=== PATIENT | male | born 1980 | race Two or more races ===

== ENCOUNTER 2019-07-11 21:24 | Emergency (ER) | payer SELFPAY ==
[2019-07-11] MEDS ORDERED: KETOROLAC TROMETHAMINE 60 MG/2 ML SDV IM ONE (22:29)
[2019-07-11] MEDS ORDERED: DIPHENHYDRAMINE HCL 25 MG CAPSULE PO ONE (22:29)
[2019-07-11] MEDS ORDERED: METOCLOPRAMIDE HCL 10 MG TABLET PO ONE (22:29)
--- NOTE | 2019-07-11 22:31 | ER Document Report ---
ED Medical Screen (RME) - General Chief Complaint: Headache Stated Complaint: HEADACHE Time Seen by Provider: 07/11/19 22:25 Mode of Arrival: Ambulatory Information source: Patient Notes: This 38-year-old male that speaks primarily Namibian presents emergency department with headache behind his eyes for the past 5 months that comes and goes. Reports he is been taking Aleve [id number] medications migraine medications without relief of symptoms. Reports for the past month its been constant. He has been seen by primary care providers in urgent care. Without relief of symptoms. Reports he is from [place]. Denies past medical history. Denies allergies. Denies trauma fever vomiting diarrhea. I have greeted and performed a rapid initial assessment of this patient. A comprehensive ED assessment and evaluation of the patient, analysis of test results and completion of the medical decision making process will be conducted by additional ED providers. Dictation of this chart was performed using voice recognition software; therefore, there may be some unintended grammatical errors. TRAVEL OUTSIDE OF THE [place] IN LAST 30 DAYS: No - Related Data Allergies/Adverse Reactions: No Known Allergies Allergy (Unverified 07/11/19 22:25) Physical Exam - Vital signs Vitals: Temp Pulse Resp BP Pulse Ox 98.2 F 83 18 142/87 H 98 07/11/19 21:49 07/11/19 21:49 07/11/19 21:49 07/11/19 21:49 07/11/19 21:49 Course - Vital Signs Vital signs: Temp Pulse Resp BP Pulse Ox 98.2 F 83 18 142/87 H 98 07/11/19 21:49 07/11/19 21:49 07/11/19 21:49 07/11/19 21:49 07/11/19 21:49
[2019-07-11] MEDS ORDERED: NORMAL SALINE 1000 ML 1,000 ML IV ONE (23:21)
[2019-07-11] MEDS ORDERED: KETOROLAC TROMETHAMINE INJ/PF 30 MG/1 ML SDV IV ONE (23:21)
[2019-07-11] MEDS ORDERED: METHOCARBAMOL INJ/PF 1000 MG/10 ML SDV IV ONE (23:21)
[2019-07-11] MEDS ORDERED: DIPHENHYDRAMINE HCL 50 MG/ML VIAL IV ONE (23:21)
[2019-07-11] MEDS ORDERED: METOCLOPRAMIDE HCL INJ/PF 10 MG/2 ML SDV IV ONE (23:21)
--- NOTE | 2019-07-11 23:23 | ER Document Report ---
ED Headache - General Chief Complaint: Headache Stated Complaint: HEADACHE Time Seen by Provider: 07/11/19 22:25 Primary Care Provider: JOYCELYN [facility] [Provider Group] - Follow up as needed [facility] [Provider Group] - Follow up as needed Mode of Arrival: Ambulatory Notes: Patient is a 38-year-old male that comes emergency department for chief complaint of a headache. He states he is tight in his right shoulder and neck, and he has a headache that feels like a band that comes around the front of his head and settles behind his eyes. He states that he has been getting these on a regular basis for weeks now. He denies head injury, shoulder or neck injury, focal numbness or weakness, nausea or vomiting, fever or chills. He states he was seen by urgent care without relief, he is taking Tylenol and Aleve without relief. Patient denies alcohol regularly, denies recreational drugs. He speaks primarily Sudanese, a stand up forklift operator system was used to communicate with the patient. He denies any prescribed any medications, denies any surgeries or past medical history. TRAVEL OUTSIDE OF THE [place] IN LAST 30 DAYS: No - Related Data Allergies/Adverse Reactions: No Known Allergies Allergy (Unverified 07/11/19 22:25) Past Medical History - General Information source: Patient - Social History Smoking Status: Never Smoker Frequency of alcohol use: None Drug Abuse: None Lives with: Family Family History: Reviewed & Not Pertinent Patient has suicidal ideation: No Patient has homicidal ideation: No - Medical History Medical History: Negative Surgical Hx: Negative - Immunizations Immunizations up to date: Yes Hx Diphtheria, Pertussis, Tetanus Vaccination: Yes Review of Systems - Review of Systems Constitutional: No symptoms reported EENT: No symptoms reported Cardiovascular: No symptoms reported Respiratory: No symptoms reported Gastrointestinal: No symptoms reported Genitourinary: No symptoms reported Male Genitourinary: No symptoms reported Musculoskeletal: See HPI Skin: No symptoms reported Hematologic/Lymphatic: No symptoms reported Neurological/Psychological: See HPI Physical Exam - Vital signs Vitals: Temp Pulse Resp BP Pulse Ox 98.2 F 90 19 142/87 H 98 07/11/19 21:48 07/11/19 21:48 07/11/19 21:48 07/11/19 21:48 07/11/19 21:48 - Notes Notes: GENERAL: Alert, interacts well. No acute distress. HEAD: Normocephalic, atraumatic. EYES: Pupils equal, round, and reactive to light. Extraocular movements intact. ENT: Oral mucosa moist, tongue midline. Oropharynx unremarkable. Airway patent. Nares patent, no nasal septal hematoma, TM's intact. NECK: Full range of motion but pain with range of motion laterally. Supple. Trachea midline. LUNGS: Clear to auscultation bilaterally, no wheezes, rales, or rhonchi. No respiratory distress. HEART: Regular rate and rhythm. No murmur ABDOMEN: Soft, non-tender. Non-distended. EXTREMITIES: Moves all 4 extremities spontaneously. No edema, normal radial and dorsalis pedis pulses bilaterally. No cyanosis. BACK: There is tenderness along the right paracervical muscle and right trapezius muscles with muscle spasms. This is very specific. No cervical, thoracic, lumbar midline tenderness. No saddle anesthesia, normal distal neurovascular exam. Moves all extremities in full range of motion. NEUROLOGICAL: Alert and oriented x3. Normal speech. Cranial nerves II through XII grossly intact. PSYCH: Normal affect, normal mood. SKIN: Warm, dry, normal turgor. No rashes or lesions noted. Course - Re-evaluation Re-evalutation: Patient with symptoms very suggestive of a tension headache. He is very well- appearing, headache is intermittent, he has tight muscles along the right neck and trapezius muscles on the exam with a bandlike headache. He has no neurological deficits. He denies that the headache is severe. He has no v omiting or fever. No concerning findings otherwise. Very low suspicion of intracranial hemorrhage or other acute intracranial abnormality based on these findings. I discussed with patient, plan is to treat first and reevaluate him. After medications patient fell asleep, woke up, has no current complaints, states he is ready to leave. Discussed plan, follow-up, and return precautions with patient. Patient states appreciation and agreement. Stable at time of discharge. - Vital Signs Vital signs: Temp Pulse Resp BP Pulse Ox 97.6 F 71 19 125/73 97 07/12/19 03:24 07/12/19 03:24 07/12/19 03:24 07/12/19 03:24 07/12/19 03:24 Discharge - Discharge Clinical Impression: Headache Qualifiers: Headache type: unspecified Headache chronicity pattern: acute headache Intractability: not intractable Qualified Code(s): R51 - Headache Condition: Stable Disposition: HOME, SELF-CARE Additional Instructions: Anastasiya sntomas, examen y mejora con medicamentos son muy sugestivos de un dolor de rosa isela de tipo tensional. Aplique calor a cyr vangie y espalda, masajee el elsy, tome el relajante muscular Robaxin. Crystal ibuprofeno para el dolor. Si necesita bailey Fioricet para el dolor de rosa isela, puede hacerlo. Consulte a un mdico de atencin primaria para obtener ms atencin. Regrese si est peor (vmitos, peor dolor de rosa isela, fiebre, etc.). Prescriptions: Butalb/Acetaminophen/Caffeine [Fioricet (50-325-40 mg) Tablet] 1 tab PO Q4HP PRN #20 tab PRN Reason: Methocarbamol [Robaxin-750] 750 mg PO QID PRN #20 tablet PRN Reason: Forms: Return to Work Referrals: [facility] [Provider Group] - Follow up as needed [facility] [Provider Group] - Follow up as needed
[2019-07-12 03:42] VITALS: BP 125/73
== END 2019-07-12 04:00 | disposition home or self-care (01) ==
LOC: ER 21:24
DX: R51 Headache (principal); M62.830 Muscle spasm of back
CPT/HCPCS: 99283; 96375; 96365; J1200; J2800; J1885; J2765; J7030

== ENCOUNTER 2019-10-15 18:55 | Emergency (ER) | payer SELFPAY ==
--- NOTE | 2019-10-15 19:10 | ER Document Report ---
ED Medical Screen (RME) - General Chief Complaint: Abdominal Pain Stated Complaint: COUGH Time Seen by Provider: 10/15/19 19:09 TRAVEL OUTSIDE OF THE [place] IN LAST 30 DAYS: No - HPI Notes: 10/15/19 19:09 Patient is a 38-year-old male who presents complaining of having a dry cough for the past month and having intermittent epigastric/right upper quadrant pain with occasional nausea and fatigue/weakness. Patient states that he has had liver issues, but is not sure exactly what is going on in the area from when he was seen in [place]. Denies drug allergies. No surgical history to his abdomen. No fever. I have treated and performed a rapid initial assessment of this patient. A comprehensive ED assessment and evaluation of the patient, analysis of test results and completion of medical decision making process will be conducted by additional ED providers. PHYSICAL EXAMINATION: GENERAL: Well-appearing, well-nourished and in no acute distress. A&Ox4. Answers questions appropriately. Lungs: CTAB Abdomen: Limited exam in triage, there is tenderness of his right upper quadrant and epigastrium. - Related Data Allergies/Adverse Reactions: No Known Allergies Allergy (Unverified 07/11/19 22:25) Past Medical History - Immunizations Immunizations up to date: Yes Hx Diphtheria, Pertussis, Tetanus Vaccination: Yes
[2019-10-15] MEDS ORDERED: METOCLOPRAMIDE HCL INJ/PF 10 MG/2 ML SDV IV ONE (19:11)
[2019-10-15] MEDS ORDERED: NORMAL SALINE 1000 ML 1,000 ML IV ONE (19:11)
--- NOTE | 2019-10-15 20:47 | RADIOLOGY REPORT (SQ) ---
EXAM DESCRIPTION: XR CHEST 2 VIEWS COMPLETED DATE/TME: 10/15/2019 19:10 CLINICAL HISTORY: 38 years, Male, cough COMPARISON: None. NUMBER OF VIEWS: 2 TECHNIQUE: Frontal and lateral radiograph are obtained LIMITATIONS: None. FINDINGS: Cardiac and mediastinal contours are normal. Patchy retrocardiac left basilar opacity is noted. No pleural effusion or pneumothorax. IMPRESSION: Patchy retrocardiac left basilar opacity. Consider atelectasis or pneumonia to include aspiration. Suggest follow-up to clearing. copyright 2010 [employer]- All Rights Reserved
[2019-10-15 20:56] LABS: ABSOLUTE EOSINOPHILS # (AUTO) 0.2 10^3/uL (0.0-0.6); ABSOLUTE LYMPHOCYTES (AUTO) 2.6 10^3/uL (0.5-4.7); ABSOLUTE MONOCYTES (AUTO) 0.6 10^3/uL (0.1-1.4); ABSOLUTE NEUT (AUTO) 4.6 10^3/uL (1.7-8.2); BASOPHILS % (AUTO) 0.6 % (0-2); EOSINOPHILS % (AUTO) 2.3 % (0-6); HEMATOCRIT 46.9 % (37.9-51.0); HEMOGLOBIN 15.8 g/dL (13.5-17.0); LYMPHOCYTES % (AUTO) 32.5 % (13-45); MEAN CORPUSCULAR HEMOGLOBIN 28.7 pg (27.0-33.4); MEAN CORPUSCULAR HGB CONC 33.8 g/dL (32.0-36.0); MEAN CORPUSCULAR VOLUME 85 fl (80-97); MONOCYTES % (AUTO) 7.8 % (3-13); PLATELET COUNT 202 10^3/uL (150-450); RED BLOOD COUNT 5.52 10^6/uL (4.35-5.55); RED CELL DISTRIBUTION WIDTH 13.4 % (11.5-14.0); SEGMENTED NEUTROPHILS % (AUTO) 56.8 % (42-78); TOTAL CELLS COUNTED % (AUTO) 100 %
[2019-10-15 21:04] LABS: APPEARANCE,URINE CLEAR; BILIRUBIN,URINE NEGATIVE (NEGATIVE); COLOR,URINE YELLOW; GLUCOSE, URINE NEGATIVE (NEGATIVE); KETONES,URINE NEGATIVE (NEGATIVE); PROTEIN,URINE NEGATIVE (NEGATIVE); URINE SPECIFIC GRAVITY 1.023; UROBILINOGEN,URINE NEGATIVE mg/dL (<2.0)
[2019-10-15 21:17] LABS: ALBUMIN 4.5 g/dL (3.5-5.0); ALKALINE PHOSPHATASE 95 U/L (38-126); ANION GAP 7 (5-19); ASPARTATE AMINO TRANSFERASE 41 U/L (17-59); BILIRUBIN,TOTAL 0.4 mg/dL (0.2-1.3); BLOOD UREA NITROGEN 15 mg/dL (7-20); CALCIUM 9.7 mg/dL (8.4-10.2); CARBON DIOXIDE 31 mmol/L (22-30); CHLORIDE 101 mmol/L (98-107); GLUCOSE 123 mg/dL (75-110); POTASSIUM 4.5 mmol/L (3.6-5.0); TOTAL PROTEIN 7.4 g/dL (6.3-8.2)
[2019-10-15] MEDS ORDERED: CEFTRIAXONE 1 GM/D5W RTU 1 GM/50 ML RTUPB IV ONE (21:24)
--- NOTE | 2019-10-15 21:26 | ER Document Report ---
ED General - General Chief Complaint: Abdominal Pain Stated Complaint: COUGH Time Seen by Provider: 10/15/19 21:15 Primary Care Provider: JOYCELYN [facility] [Provider Group] - Follow up as needed [facility] [Provider Group] - Follow up as needed [facility] [Provider Group] - Follow up as needed Mode of Arrival: Ambulatory Information source: Patient Notes: Patient presents complaining of cough for the past month that worsened recently. Patient also reports right upper quadrant abdominal pain off and on for the past month that worsened when his cough symptoms worsen. Patient does report nausea. Patient denies any vomiting. Patient denies any fever. TRAVEL OUTSIDE OF THE [place] IN LAST 30 DAYS: No - HPI Onset: Other - 1 month Onset/Duration: Worse Quality of pain: Achy Pain Level: 4 Associated symptoms: Nonproductive cough, Nausea. denies: Chest pain, Chills, Diarrhea, Fever, Vomiting, Shortness of breath, Sore throat Exacerbated by: Denies Relieved by: Denies Similar symptoms previously: No Recently seen / treated by doctor: No - Related Data Allergies/Adverse Reactions: No Known Allergies Allergy (Unverified 07/11/19 22:25) Past Medical History - General Information source: Patient - Social History Smoking Status: Never Smoker Frequency of alcohol use: Occasional Drug Abuse: None Occupation: construction Lives with: Spouse/Significant other Family History: Reviewed & Not Pertinent Patient has suicidal ideation: No Patient has homicidal ideation: No - Medical History Medical History: Negative Surgical Hx: Negative - Immunizations Immunizations up to date: Yes Hx Diphtheria, Pertussis, Tetanus Vaccination: Yes Review of Systems - Review of Systems Constitutional: No symptoms reported. denies: Fever EENT: No symptoms reported. denies: Throat pain Cardiovascular: No symptoms reported. denies: Chest pain, Dizziness, Lightheaded Respiratory: Cough. denies: Short of breath Gastrointestinal: Abdominal pain, Nausea. denies: Diarrhea, Vomiting Genitourinary: No symptoms reported. denies: Dysuria, Flank pain Male Genitourinary: No symptoms reported Musculoskeletal: Back pain Skin: No symptoms reported Hematologic/Lymphatic: No symptoms reported Neurological/Psychological: No symptoms reported Physical Exam - Vital signs Vitals: Temp Pulse Resp BP Pulse Ox 98.1 F 86 18 131/79 H 96 10/15/19 19:04 10/15/19 19:04 10/15/19 19:04 10/15/19 19:04 10/15/19 19:04 - General General appearance: Appears well, Alert In distress: None - HEENT Head: Normocephalic, Atraumatic Eyes: Normal Conjunctiva: Normal Nasal: Normal Mouth/Lips: Normal Pharynx: Normal Neck: Normal, Supple. No: Lymphadenopathy - Respiratory Respiratory status: No respiratory distress Chest status: Nontender Breath sounds: Nonproductive cough. No: Rales, Rhonchi, Stridor, Wheezing Chest palpation: Normal - Cardiovascular Rhythm: Regular Heart sounds: S1 appreciated, S2 appreciated - Abdominal Inspection: Normal Distension: No distension Bowel sounds: Normal Tenderness: Tender - RUQ Organomegaly: No organomegaly - Back Back: CVA tenderness - mild right - Extremities General upper extremity: Normal inspection, Normal ROM General lower extremity: Normal inspection, Normal ROM - Neurological Neuro grossly intact: Yes Cognition: Normal Tyler Coma Scale Eye Opening: Spontaneous Cindy Coma Scale Verbal: Oriented Tyler Coma Scale Motor: Obeys Commands Tyler Coma Scale Total: 15 - Psychological Associated symptoms: Normal affect, Normal mood - Skin Skin Temperature: Warm Skin Moisture: Dry Skin Color: Normal Course - Re-evaluation Re-evalutation: 10/15/19 23:[address] Luz regarding patient's ultrasound report. Does not recommend any additional emergent imaging tonight but does recommend outpatient follow-up with primary doctor. Patient's chest x-ray with findings worrisome for possible pneumonia. Patient has had a cough for the past month that worsened recently. Will give patient prescription for doxycycline. Patient also with incidental finding of 3 hepatic lesions. Patient was given a copy of his ultrasound report and encouraged to follow-up with his primary doctor for further evaluation of this finding. Patient advised that this could be a benign lesion but malignancy cannot definitively be ruled out until he has additional test. Patient encouraged to contact his primary doctor on Thursday for an appointment. Discussed worsening signs or symptoms that patient should return immediately for. Patient verbalized understanding and is agreeable with plan of care at this time. - Vital Signs Vital signs: Temp Pulse Resp BP Pulse Ox 98.2 F 71 18 122/74 100 10/16/19 00:16 10/16/19 00:16 10/16/19 00:16 10/16/19 00:16 10/16/19 00:16 - Laboratory Result Diagrams: 10/15/19 20:40 10/15/19 20:40 Laboratory results interpreted by me: 10/15/19 10/15/19 20:40 20:40 Carbon Dioxide 31 H Glucose 123 H ALT 60 H Urine Ascorbic Acid 40 H 10/15/19 23:25 Labs- Entire Visit 10/15/19 10/15/19 10/15/19 20:40 20:40 20:40 WBC 8.0 RBC 5.52 Hgb 15.8 Hct 46.9 MCV 85 MCH 28.7 MCHC 33.8 RDW 13.4 Plt Count 202 Lymph % (Auto) 32.5 [place] % (Auto) 7.8 Eos % (Auto) 2.3 Baso % (Auto) 0.6 Absolute Neuts (auto) 4.6 Absolute Lymphs (auto) 2.6 Absolute Monos (auto) 0.6 Absolute Eos (auto) 0.2 Absolute Basos (auto) 0.0 Seg Neutrophils % 56.8 Sodium 139.1 Potassium 4.5 Chloride 101 Carbon Dioxide 31 H Anion Gap 7 BUN 15 Creatinine 0.78 Est GFR ( Amer) > 60 Est GFR (MDRD) Non-Af > 60 Glucose 123 H Calcium 9.7 Total Bilirubin 0.4 Direct Bilirubin 0.0 Neonat Total Bilirubin Not Reportable Neonat Direct Bilirubin Not Reportable Neonat Indirect Bili Not Reportable AST 41 ALT 60 H Alkaline Phosphatase 95 Total Protein 7.4 Albumin 4.5 Lipase 94.8 TSH 1.71 Urine Color Urine Appearance Urine pH Ur Specific [place] Urine Protein Urine Glucose (UA) Urine Ketones Urine Blood Urine Nitrite (Reflex) Urine Bilirubin Urine Urobilinogen Leukocyte Esterase Rfl Urine RBC (Auto) Urine WBC (Reflex) Urine Mucus (Auto) Urine Ascorbic Acid 10/15/19 20:40 WBC RBC Hgb Hct MCV MCH MCHC RDW Plt Count Lymph % (Auto) [place] % (Auto) Eos % (Auto) Baso % (Auto) Absolute Neuts (auto) Absolute Lymphs (auto) Absolute Monos (auto) Absolute Eos (auto) Absolute Basos (auto) Seg Neutrophils % Sodium Potassium Chloride Carbon Dioxide Anion Gap BUN Creatinine Est GFR ( Amer) Est GFR (MDRD) Non-Af Glucose Calcium Total Bilirubin Direct Bilirubin Neonat Total Bilirubin Neonat Direct Bilirubin Neonat Indirect Bili AST ALT Alkaline Phosphatase Total Protein Albumin Lipase TSH Urine Color YELLOW Urine Appearance CLEAR Urine pH 5.0 Ur Specific [place] 1.023 Urine Protein NEGATIVE Urine Glucose (UA) NEGATIVE Urine Ketones NEGATIVE Urine Blood NEGATIVE Urine Nitrite (Reflex) NEGATIVE Urine Bilirubin NEGATIVE Urine Urobilinogen NEGATIVE Leukocyte Esterase Rfl NEGATIVE Urine RBC (Auto) 1 Urine WBC (Reflex) 1 Urine Mucus (Auto) OCC Urine Ascorbic Acid 40 H - Diagnostic Test Radiology reviewed: Reports reviewed Discharge - Discharge Clinical Impression: Liver lesion Abdominal pain Qualifiers: Abdominal location: right upper quadrant Qualified Code(s): R10.11 - Right upper quadrant pain Pneumonia Qualifiers: Pneumonia type: due to unspecified organism Laterality: left Lung location: lower lobe of lung Qualified Code(s): J18.9 - Pneumonia, unspecified organism Condition: Stable Disposition: HOME, SELF-CARE Instructions: Abdominal Pain ([facility]), Antinausea Medication ([facility]), Growth or Mass, Pending Workup ([facility]), Pneumonia ([facility]), Rocephin ([facility]) Additional Instructions: Return immediately for any new or worsening symptoms Followup with your primary care provider, call tomorrow to make a followup appointment Your ultrasound showed that you had some lesions on your liver. These will need further evaluation. Follow-up with a primary care provider for further evaluation. Call Thursday to make an appointment. Prescriptions: Doxycycline Hyclate 100 mg PO BID #20 tablet. Naproxen [Naprosyn 250 Nmg Tablet] 1 tab PO BID #14 tablet Benzonatate [Tessalon Perles 100 mg Capsule] 100 mg PO ASDIR PRN #30 capsule PRN Reason: Ondansetron [Zofran Odt 4 mg Tablet] 1 tab PO Q6H #15 tab.rapdis Forms: Return to Work Referrals: [facility] [Provider Group] - Follow up as needed [facility] [Provider Group] - Follow up as needed [facility] [Provider Group] - Follow up as needed Print Language: French
--- NOTE | 2019-10-15 22:19 | RADIOLOGY REPORT (SQ) ---
Ultrasound right upper quadrant on 10/15/2019 at 7:27 PM CLINICAL INDICATION: Right upper quadrant and epigastric pain COMPARISON: None FINDINGS: Multiple sonographic images are obtained throughout the right upper quadrant, both transverse and sagittal images are obtained. Visualized pancreas is unremarkable. Visualized aorta is unremarkable without evidence of an aneurysm. There are at least three hypoechoic but slightly heterogeneous liver lesions with the largest measuring up to 2.7 cm. While these may represent hemangiomas or benign etiology this is concerning for malignant process. Recommend follow-up liver protocol CT or MRI with and without contrast. Visualized hepatic vasculature is patent and with a normal directional flow. The common duct measures 2 mm which is within normal limits beginning against obstruction of the biliary tree. There are no gallstones, gallbladder wall thickening or pericholecystic fluid. The right kidney shows no hydronephrosis. No free fluid is noted in the right upper quadrant. IMPRESSION: At least three liver lesions noted that are indeterminate. Recommend follow-up liver protocol MRI ideally with and without contrast to better characterize.
[2019-10-15] MEDS ORDERED: DOXYCYCLINE HYCLATE 100 MG TABLET PO ONE (23:29)
[2019-10-16 00:18] VITALS: BP 122/74
== END 2019-10-16 00:22 | disposition home or self-care (01) ==
LOC: ER 18:55
DX: J18.9 Pneumonia, unspecified organism (principal); K76.9 Liver disease, unspecified; R10.11 Right upper quadrant pain; R10.811 Right upper quadrant abdominal tenderness; R05 Cough; R11.0 Nausea; M54.9 Dorsalgia, unspecified
CPT/HCPCS: 99284; 96360; 36415; 87040; 83690; 84443; 85025; 80053; 81001; 71046; 76705; J2765; J7030; J0696